=== PATIENT | male | born 1940 | race Caucasian/White ===

== ENCOUNTER 2017-10-06 10:03 | Emergency (ER) | payer MEDICARE ==
[~2017-10-06] VITALS: Ht 170.2 cm; Wt 70.9 kg
[~2017-10-06 10:03] MED LIST: AMMO225L14 TOP; ATOR20TA66 PO; COLC0.6T68 PO; FEBU40TA PO; FERR-106 PO; FLO0.4C PO; GABA-530 PO; HYDR-565 PO; INSU100V9 SQ; KETO120S2 TOP; LACT10SO PO; LEVO50TA8 PO; LOSA50TA3 PO; METF-516 PO; SAXA2.5T PO
[2017-10-06 11:12] LABS: BASOPHILS % (AUTO) 0.1 % (0-1); EOSINOPHILS # (AUTO) 0.4 X10'3 (0-0.9); EOSINOPHILS % (AUTO) 2.6 % (0-6); HEMATOCRIT 39.3 % (42.0-52.0); HEMOGLOBIN 12.9 g/dl (14.0-17.9); LYMPHOCYTES # (AUTO) 1.7 X10'3 (1.1-4.8); MEAN CORPUSCULAR HEMOGLOBIN 28.3 PG (27.0-31.0); MEAN CORPUSCULAR HGB CONC 32.7 % (33.0-36.5); MEAN CORPUSCULAR VOLUME 86.3 FL (78-98); MEAN PLATELET VOLUME 7.5 FL (7.4-10.4); MONOCYTES # (AUTO) 0.8 X10'3 (0-0.9); MONOCYTES % (AUTO) 5.8 % (2-12); NEUTROPHILS # (AUTO) 11.5 X10'3 (1.8-7.7); NEUTROPHILS % (AUTO) 79.5 % (42-75); PLATELET COUNT 334 X10'3 (140-440); RED BLOOD COUNT 4.55 X10'6 (4.70-6.10); RED CELL DISTRIBUTION WIDTH 15.1 % (11.5-14.5); WHITE BLOOD COUNT 14.4 X10'3 (4.5-11.0)
[2017-10-06] MEDS ORDERED: ondansetron/PF 4mg/2ml inj IV ONE (11:20)
[2017-10-06 11:26] LABS: ALANINE AMINOTRANSFERASE 15 U/L (12-78); ALBUMIN/GLOBULIN RATIO 0.8 (1.1-1.5); ALKALINE PHOSPHATASE 77 IU/L (46-116); ANION GAP 9 (8-16); ASPARTATE AMINO TRANSFERASE 14 U/L (10-37); BILIRUBIN,TOTAL 0.3 MG/DL (0.1-1.0); BLOOD UREA NITROGEN 44 MG/DL (7-18); BUN/CREATININE RATIO 24.4 (5.4-32.0); CALCIUM 9.2 MG/DL (8.5-10.1); CHLORIDE 103 MMOL/L (99-107); GLUCOSE 149 MG/DL (70-104); SODIUM 139 MMOL/L (135-145); TOTAL CARBON DIOXIDE 27.1 MMOL/L (24-32); TOTAL PROTEIN 6.8 G/DL (6.4-8.2); eGFR 37 ML/MIN
[2017-10-06 11:45] LABS: PLATELET ESTIMATE NORMAL; TOTAL CELLS COUNTED 100
[2017-10-06 13:53] VITALS: BP 145/69
== END 2017-10-06 13:56 | disposition short-term general hospital (02) ==
LOC: ER 10:03
DX: S12.200A Unspecified displaced fracture of third cervical vertebra, initial encounter for closed fracture (principal); I10 Essential (primary) hypertension; E11.9 Type 2 diabetes mellitus without complications; M19.90 Unspecified osteoarthritis, unspecified site; Z98.890 Other specified postprocedural states; Z79.84 Long term (current) use of oral hypoglycemic drugs; Z79.899 Other long term (current) drug therapy; Z88.8 Allergy status to other drugs, medicaments and biological substances; W01.190A Fall on same level from slipping, tripping and stumbling with subsequent striking against furniture, initial encounter; Y93.89 Activity, other specified; Y92.098 Other place in other non-institutional residence as the place of occurrence of the external cause; Y99.8 Other external cause status
CPT/HCPCS: 36415; 72125; 80053; 82948; 85025; 93005; 96374; 96375; 99291; A4315; A6255; A6449; J2270; J2405; L0172

== ENCOUNTER 2018-05-25 06:31 | Day surgery (SDC) | payer MEDICARE ==
[~2018-05-25] VITALS: Ht 170.2 cm; Wt 75.3 kg
[2018-05-25] VITALS (22 sets, daily range): BP systolic 151–210; BP diastolic 60–128
[~2018-05-25 06:31] MED LIST changes: -FERR-106 PO; +FERR325T32 PO; -KETO120S2 TOP; +KETO120S3 TOP
[2018-05-25] MEDS ORDERED: normal saline 1000ml 1,000 ML IV PRN (07:05)
[2018-05-25 08:00] LABS: BASOPHILS # (AUTO) 0.1 X10'3 (0-0.2); BASOPHILS % (AUTO) 0.5 % (0-1); EOSINOPHILS # (AUTO) 0.7 X10'3 (0-0.9); EOSINOPHILS % (AUTO) 5.5 % (0-6); HEMATOCRIT 34.2 % (42.0-52.0); HEMOGLOBIN 11.3 g/dl (14.0-17.9); LYMPHOCYTES # (AUTO) 3.1 X10'3 (1.1-4.8); LYMPHOCYTES % (AUTO) 26.3 % (21-51); MEAN CORPUSCULAR HEMOGLOBIN 29.3 PG (27.0-31.0); MEAN CORPUSCULAR HGB CONC 33.1 % (33.0-36.5); MEAN CORPUSCULAR VOLUME 88.5 FL (78-98); MEAN PLATELET VOLUME 7.7 FL (7.4-10.4); MONOCYTES # (AUTO) 0.8 X10'3 (0-0.9); MONOCYTES % (AUTO) 6.8 % (2-12); NEUTROPHILS # (AUTO) 7.3 X10'3 (1.8-7.7); NEUTROPHILS % (AUTO) 60.9 % (42-75); PLATELET COUNT 303 X10'3 (140-440); RED BLOOD COUNT 3.87 X10'6 (4.70-6.10); RED CELL DISTRIBUTION WIDTH 14.3 % (11.5-14.5)
[2018-05-25 08:09] LABS: ALBUMIN 2.8 G/DL (3.4-5.0); ANION GAP 9 (8-16); BLOOD UREA NITROGEN 47 MG/DL (7-18); CHLORIDE 104 MMOL/L (99-107); CREATININE 2.04 MG/DL (0.60-1.10); GLUCOSE 91 MG/DL (70-104); INR 0.9 INR; POTASSIUM 4.4 MMOL/L (3.5-5.1); PROTHROMBIN TIME 9.7 SECONDS (9.0-12.0); SODIUM 138 MMOL/L (135-145); eGFR 32 ML/MIN
[2018-05-25 08:13] LABS: CALCIUM 8.7 MG/DL (8.5-10.1)
[2018-05-25] MEDS ORDERED: LIDOcaine 1%/PF 5ML 10 MG/ML VIAL SQ ONE (08:35)
[2018-05-25] MEDS ORDERED: fentaNYL/PF 50MCG/1 ML 2ML syringe IV PRN (08:35)
[2018-05-25] MEDS ORDERED: midazolam 2 mg/2 ml injection IV PRN (08:35)
[2018-05-25] MEDS ORDERED: LIDOcaine 1%/PF 5ML 10 MG/ML VIAL ONE (08:42)
[2018-05-25] MEDS ORDERED: midazolam 2 mg/2 ml injection ONE (08:43)
[2018-05-25] MEDS ORDERED: fentaNYL/PF 50MCG/1 ML 2ML syringe ONE ×2 (08:43→09:38)
[2018-05-25] MEDS ORDERED: gelatin sponge, absorbable (Gelfoam 12-7MM) sponge TP ONE (09:38)
[2018-05-25] MEDS ORDERED: HYDROcodone/acetaminophen 5mg/325mg tablet PO PRN ×2 (10:10)
[2018-05-25] MEDS ORDERED: OXYB15TA3 PO (14:39)
[2018-05-25] MEDS ORDERED: DOCU100T9 PO (14:39)
[2018-05-25] MEDS ORDERED: AMLO5TAB2 PO (14:39)
[2018-05-25] MEDS ORDERED: CHOL40003 PO (14:39)
[2018-05-25] MEDS ORDERED: CALC-206 PO (14:39)
[2018-05-25] MEDS ORDERED: MAGN250T2 PO (14:39)
[2018-05-25] MEDS ORDERED: ATOR10TA70 PO (14:39)
[2018-05-25] MEDS ORDERED: ASPI-1265 PO (14:39)
[2018-05-25] MEDS ORDERED: PSYL PO (14:39)
[2018-05-25] MEDS ORDERED: OMEG1CAP13 PO (14:39)
== END 2018-05-25 14:20 | disposition home or self-care (01) ==
LOC: SSTAY O 06:31
PROVIDERS: ATTEND Radiology Diagnostic Radiology
DX: I13.0 Hypertensive heart and chronic kidney disease with heart failure and stage 1 through stage 4 chronic kidney disease, or unspecified chronic kidney disease (principal); N18.3 Chronic kidney disease, stage 3 (moderate); E11.22 Type 2 diabetes mellitus with diabetic chronic kidney disease; I50.9 Heart failure, unspecified; N26.9 Renal sclerosis, unspecified; E66.9 Obesity, unspecified; G47.33 Obstructive sleep apnea (adult) (pediatric); E03.9 Hypothyroidism, unspecified; E78.5 Hyperlipidemia, unspecified; M19.012 Primary osteoarthritis, left shoulder; Z87.442 Personal history of urinary calculi; Z87.891 Personal history of nicotine dependence; Z90.49 Acquired absence of other specified parts of digestive tract; Z96.651 Presence of right artificial knee joint; Z98.41 Cataract extraction status, right eye; Z98.42 Cataract extraction status, left eye; Z85.828 Personal history of other malignant neoplasm of skin; Z79.4 Long term (current) use of insulin; Z86.69 Personal history of other diseases of the nervous system and sense organs; Z88.6 Allergy status to analgesic agent; N40.0 Benign prostatic hyperplasia without lower urinary tract symptoms; Z68.26 Body mass index [BMI] 26.0-26.9, adult; Z79.82 Long term (current) use of aspirin; Z79.84 Long term (current) use of oral hypoglycemic drugs; Z79.891 Long term (current) use of opiate analgesic; Z98.890 Other specified postprocedural states; Z88.8 Allergy status to other drugs, medicaments and biological substances; Z79.899 Other long term (current) drug therapy
CPT/HCPCS: 36415; 50200; 77012; 80048; 82948; 85025; 85610; 99152; 99153; A6449; J2001; J2250; J3010; J7030

== ENCOUNTER 2019-08-25 01:03 | Outpatient (CLI) | payer MEDICARE ==
[~2019-08-25 01:03] MED LIST changes: +AMLO-314 PO; -AMMO225L14 TOP; +ASPI-1265 PO; +ATOR10TA70 PO; -ATOR20TA66 PO; +CALC-206 PO; +CHOL40002 PO; -COLC0.6T68 PO; +DOCU100T9 PO; -FERR325T32 PO; -FLO0.4C PO; -GABA-530 PO; +HYDR-4353 PO; -HYDR-565 PO; -INSU100V9 SQ; -LACT10SO PO; +MAGN250T2 PO; +OMEG1CAP13 PO; +OXYB15TA3 PO; +PSYL PO; -SAXA2.5T PO
== END 2019-08-25 23:59 | disposition home or self-care (01) ==
LOC: DIABETIC 01:03
PROVIDERS: ATTEND Internal Medicine Critical Care Medicine
DX: I12.9 Hypertensive chronic kidney disease with stage 1 through stage 4 chronic kidney disease, or unspecified chronic kidney disease (principal); E11.22 Type 2 diabetes mellitus with diabetic chronic kidney disease; N18.9 Chronic kidney disease, unspecified; E66.9 Obesity, unspecified
CPT/HCPCS: 97802

== ENCOUNTER 2020-11-02 10:46 | Emergency (ER) | payer OTHER ==
[~2020-11-02] VITALS: Ht 165.1 cm; Wt 75.0 kg
[~2020-11-02 10:46] MED LIST changes: +ALOG25TA2 PEG; -AMLO-314 PO; +AMLO10TA48 PO; -ATOR10TA70 PO; +ATOR20TA66 PO; +CIPR-259 PO; +CYAN250010 PO; +FURO-150 PO; +HYDR100T27 PO; -KETO120S3 TOP; +KETO120S5 TOP; +LEVO25TA7 PO; -LEVO50TA8 PO; +LIDO700A32 TOP; -LOSA50TA3 PO; -MAGN250T2 PO; -METF-516 PO; -PSYL PO
[2020-11-02] MEDS ORDERED: morphine 4 MG/ML inj SYRINge IM ONE (11:40)
[2020-11-02] MEDS ORDERED: ondansetron 4mg rapidly disintigrating tab PO ONE (11:40)
--- NOTE | 2020-11-02 12:19 | NUR ---
NOTIFIED PORFIRIO GALARZA REGARDING PT CONCERN REGARDING PT PAIN STILL SAME AFTER MORPHINE INJ PER PROVIDER HE NEEDS [facility].PT NOTIFIED OKAY WITH IT INSTRUCTED TO CALL FOR HIS RIDE.
[2020-11-02 13:52] VITALS: BP 137/66
== END 2020-11-02 13:53 | disposition home or self-care (01) ==
LOC: ER 10:47
DX: M54.5 Low back pain (principal); I10 Essential (primary) hypertension; E11.9 Type 2 diabetes mellitus without complications; M19.90 Unspecified osteoarthritis, unspecified site; M10.9 Gout, unspecified; Z87.440 Personal history of urinary (tract) infections; Z90.89 Acquired absence of other organs; Z98.890 Other specified postprocedural states; Z88.8 Allergy status to other drugs, medicaments and biological substances; Z79.82 Long term (current) use of aspirin; Z79.899 Other long term (current) drug therapy; Z79.2 Long term (current) use of antibiotics
CPT/HCPCS: 96372; 99284; J2270